=== PATIENT | female | born 1980 | race Caucasian/White ===

== ENCOUNTER 2019-04-01 06:36 | Day surgery (SDC) | payer OTHER, SELFPAY ==
[2019-03-27 14:50] VITALS: BMI 46.0
[2019-04-01] VITALS (12 sets, daily range): BP systolic 114–137; BP diastolic 75–89; PULSE 78–108; RESP 10–21; TEMP 36.1–36.8; O2SAT 92–98; BMI 46.0
--- NOTE | 2019-04-01 | PATH_ITS ---
[facility] Accession Number: [id number] . 01 Material submitted: . gallbladder - GALLBLADDER WITH CONTENTS . 02 Diagnosis: Gallbladder with Contents, Laparoscopic Cholecystectomy: Gallbladder with mild chronic cholecystitis, cholesterolosis, and cholelithiasis. MRV/04/03/2019 . 02 Electronically signed: . Love Ha MD, Pathologist NPI- [id number] . 01 Gross description: . Received in formalin, labeled gallbladder w/contents, is an intact gallbladder (length-12.1 cm, diameter-4.0 cm) with green smooth shiny serosa and a patient cystic duct. No lymph nodes are identified. The lumen contains brown-green mucoid bile and multiple dark tevin solid smooth multifaceted hard calculi (8.4 x 6.2 x 1.8 cm in aggregate) with crystalline cut surfaces. The mucosa is segundo-green with a trabeculated appearance. The wall is up to 0.1 cm thick. No nodules, masses or lesions are identified. Section code: (A1) cystic duct resection margin and two serial sections from the body; (A2) two longitudinal sections from the fundus. ([id number]) /MRV . 02 Pathologist provided ICD-10: K81.1, K80.60 . 02 CPT . 382584 Performed at: 01 [facility] [address] [facility], [place], [place] [id number] MD Walter Knight MD Phone: [phone] Performed at: 02 [facility] [address] [place], [place] [id number] MD Asia Ramos MD Phone: [phone]
[2019-04-01] MEDS: LACTATED RINGERS 1,000 ML 100 ML IV ×2 (06:55→09:34)
--- NOTE | 2019-04-01 07:43 | PM.HP.1 ---
History of Present Illness History of Present Illness Date Patient Seen: 04/01/19 Time Patient Seen: 07:43 Chief complaint: [id number] Narrative: pt seen and examened unchanged since recent office visit chantal mykel planned Patient History Medical History (Updated 03/27/19 @ 14:53 by Valeria Arizmendi RN) Acid reflux (Chronic) Anemia (Acute) Anxiety (Chronic) Headache (Acute) Surgical History (Updated 03/27/19 @ 14:53 by Valeria Arizmendi RN) History of ankle surgery (Acute ~1996) Family History (Updated 02/17/19 @ 11:24 by Cheyanne Kirkpatrick RN) Mother Gallstones Grandmother Hypertension Cancer Social History (Updated 02/17/19 @ 11:25 by Cheyanne Kirkpatrick RN) marital status: household members: spouse occupational status: employed Smoking Status: Current every day smoker alcohol intake: current substance use type: does not use Family & Social History Family History (Updated 02/17/19 @ 11:24 by Cheyanne Kirkpatrick RN) Mother Gallstones Grandmother Hypertension Cancer Social History: household members spouse Tobacco & Substance use: Smoking Status Current every day smoker alcohol intake current Substance Use Type does not use Meds Home Medications and Allergies Home Medications Medication Instructions Recorded Confirmed Type loratadine 10 mg capsule 10 mg PO DAILY 02/17/19 03/27/19 History ranitidine HCl 150 mg capsule 150 mg PO DAILY 02/17/19 03/27/19 History Allergies Allergy/AdvReac Type Severity Reaction Status Date / Time No Known Drug Allergies Allergy Verified 04/01/19 07:19 Exam Vital Signs (past 8 hours): - 04/01/19 07:09 Temperature 98.2 F Pulse Rate 97 H Respiratory Rate 20 Blood Pressure 127/89 Pulse Oximetry 98 Oxygen Delivery Method Room Air
[2019-04-01] MEDS: HEPARIN 5,000 UNIT/ML VIAL 5000 UNIT SUBCUT (07:50)
[2019-04-01] MEDS: CEFTRIAXONE 2 GM/50 ML FROZ.PIGGY IV (07:55)
[2019-04-01] MEDS: metroNIDAZOLE 500 MG/100 ML PIGGYBACK 100 MG IV (07:55)
--- NOTE | 2019-04-01 08:26 | SUR.OPER ---
Supine on padded OR bed, head on pillow, safety belt at thigh, arms secured on padded armboards <90 degrees abduction. Legs uncrossed. Padded footboard in place. Tape over blanket to secure lower legs.
[2019-04-01] MEDS: BUPIVACAINE 0.25% W/ EPI 30 ML VIAL INJ (08:33)
[2019-04-01] MEDS: HYDROMORPHONE 2 MG INJ 0.5 MG IV ×3 (11:38→11:55)
[2019-04-01] MEDS: fentaNYL 100 MCG/2 ML INJ 50 MCG IV (11:59)
--- NOTE | 2019-04-01 12:01 | PM.OP.1 ---
Operative Date/Time/Diagnoses Date of procedure: 04/01/19 Time of procedure: 12:01 Pre-op diagnosis: Symptomatic cholelithiasis Post-op diagnosis: same Procedure & Clinicians Procedure: Laparoscopic cholecystectomy Laparoscopic lysis of adhesions Same procedure as scheduled: Yes Indications: 38-year-old woman with BMI of 46 presents with frequent attacks of biliary colic consistent with symptomatic cholelithiasis and 2 months ago a mild attack of acute cholecystitis. Surgeon: Aureliano Vaughn Click Yes if Unassisted: Yes Anesthesia Type: General Operative Notes Findings: 1) multiple adhesions between gallbladder and greater omentum 2) impacted cystic duct stone 3) hypertrophic and firm liver 4) please assign a 22 modifier due to the enhance difficulty of the case-multiple additional maneuvers including side down approach, dissection down into the cystic plate, additional ports for retraction all needed, at least in additional 1.5 hours of operative time required Closure Type: primary Specimen(s): other (Gallbladder and contents) Estimated Blood Loss (mL): 100 Procedure in detail: Patient was brought to the operating room she was intubated without incident she was prepped and draped in usual sterile fashion a time-out was completed. Entry into the abdomen was performed using Veress needle technique. Small stab incision was made on gomez's point on the left side. A Veress needle was advanced to distinct click was noted as it passed through the parietal peritoneum. The needle was aspirated there was no succus or blood. There is a confirmatory saline drop test. The needle was connected to insufflation and initial insufflation pressures were low. The abdomen was then insufflated to 15 mm of mercury. A small vertically oriented incision was placed on the superior umbilical crown through this a 5 mm port was advanced using Visiport technique directly visualizing the layers of the abdominal wall until the dark space of the insufflated abdomen was entered. The machine tank operator in the trocar was then removed and the lap scope was introduced into the abdomen. The area of Veress needle entry was inspected there was no injury or bleeding and the needle was removed without incident. At this point two 5 mm ports were then placed in the right upper quadrant and an additional 11 mm port placed in the epigastrium. Patient was placed in reverse Trendelenburg with the right side elevated. The gallbladder was readily identified. The was largely encased with greater omentum. The gallbladder fundus was grasped and elevated cephalad and the greater omentum was carefully stripped down off of the inferior wall of the gallbladder. This was performed using blunt dissection as well as small amount of hook cautery. The infundibulum of the gallbladder was then grasped retracted cephalad -unfortunately given the patient's body habitus with a BMI of 46, a large stiff liver, as well as what ended up being a impacted stone with in the cystic duct -there is not adequate exposure to see clearly the cystic triangle. As a consequence an additional 5 mm port was placed just to the left of the umbilicus -and a liver retractor inserted into the space. The retractor then was placed on the duodenum and pushed posteriorly to allow for greater exposure. The visceral peritoneum on the medial lateral aspect of the gallbladder was then incised using hook cautery -using blunt dissection the then I dissected to the level of the of the gallbladder wall -following this plane more deeply I began to follow the infundibulum towards the cystic duct. In the course of this prominent cystic artery clearly ending in the gallbladder wall was encountered. This was clipped and divided without incident. I then continued to dissect further along working towards the cystic duct -was obvious there was a large stone lodged in the neck of the infundibulum/cystic duct requiring deeper dissection into the cystic plate. To facilitate a safe dissection I then elected to proceed with a side down approach. Following the gallbladder wall I then opened a large window between the gallbladder and the gallbladder fossa of the liver at the midportion of the gallbladder -I then carried this dissection plane to join the previously created dissection plane along the infundibulum -in this way I created a circumferential plane that was able to advanced down words to along the impacted stone within the cystic duct. Eventually I was able to find a normal caliber cystic duct distal to the impacted stone -this area was carefully skeletonized -I carefully inspected the area to ensure that the common bile duct/common hepatic duct was not in the vicinity being tented upwards by the retraction on the cystic duct. A small branch of the cystic artery was additionally clipped and divided without incident. With the now smaller caliber cystic duct 3 clips were applied on the cystic duct stump an additional clip towards the infundibulum -this was then divided with a scissors -single lumen was identified. The gallbladder was then reflected out the gallbladder fossa without difficulty. He was placed in an Endo-Catch bed. The dissection area was then irrigated and suctioned dry hemostasis was excellent. And then proceeded to remove the gallbladder via the Endo-Catch bag from the epigastric ports -the gallbladder was nearly entirely filled with moderately sized faceted stones -as a consequence the epigastric fascial defect had to be considerably enlarged to facilitate extraction. I then closed the fascial defect with a total of 9 simple interrupted 0 Vicryl sutures placed via trans fascial suture closure device. The fascia was palpated and found to be without gaps or defects. Ports were then withdrawn under direct visualization. There is good hemostasis Local anesthetic was infiltrated into the wound. The wounds were then irrigated. All skin was then closed using 2 layers including a deep dermal 2 0 Vicryl sutures as well as the subcuticular 3 of Monocryl suture. Skin glue was applied. The patient was extubated and brought to PACU without incident Complications: none Post-operative Condition: stable Disposition: PACU Plan for aftercare: PACU then home
[2019-04-01] MEDS: OXYCODONE/ACETAMINOPHEN 5/325 TABLET 1 TAB PO ×2 (12:02→12:35)
--- NOTE | 2019-04-01 12:15 | SUR.PHASEI ---
Pt arrived to PACU needing chin lift and supplimentay o2 for airway patency, pt aroused soon after. )2 weaned off. Pt in a lot of pain treated with fentanyl and dilaudid and percocet. Prescriptions given to to fill. pt falls asleep when care not given, wakes and stated pain any where from -03/14.
--- NOTE | 2019-04-01 12:43 | SUR.PHASEII ---
Medicated with 2nd percocet pain 01/12. placed on cont pulse ox.
[2019-04-01] MEDS: METOCLOPRAMIDE 10 MG/2 ML INJ IV (14:21)
--- NOTE | 2019-04-01 14:30 | SUR.PHASEII ---
Late entry: Pt's brought in after meds filled, pt nauseated and medicated with zofran, felt better, attempted to get dressed and pt began to have dry heaves. Medicated with reglan. Tracee ann also at bedside. See MAR for drug admins.
--- NOTE | 2019-04-01 14:32 | SUR.PHASEII ---
Pulse ox greater than 95% so pulse ox d/c'ed.
--- NOTE | 2019-04-01 17:54 | SUR.PHASEII ---
Late entry: Pt's nausea resolved with rest after reglan. Pt dressed and left unit in stable condition, abdomen with surgical glue remained c/d/i.
== END 2019-04-01 15:20 | disposition home or self-care (01) ==
PROVIDERS: PCP Family Medicine; Visit Provider Surgery
PROC: 0FT44ZZ Resection of Gallbladder, Percutaneous Endoscopic Approach (ICD-10-PCS; CPT 47562; principal; 2019-04-01 07:45)
DX: K80.10 Calculus of gallbladder with chronic cholecystitis without obstruction (principal); K82.8 Other specified diseases of gallbladder; R16.0 Hepatomegaly, not elsewhere classified; N73.6 Female pelvic peritoneal adhesions (postinfective); K21.9 Gastro-esophageal reflux disease without esophagitis; F17.200 Nicotine dependence, unspecified, uncomplicated; Z68.42 Body mass index [BMI] 45.0-49.9, adult
CPT/HCPCS: 47562; 88304; J0696; J1100; J1170; J1644; J1885; J2250; J2405; J2704; J2765; J3010